=== PATIENT | male | born 1955 | race Caucasian/White ===

== ENCOUNTER 2020-10-22 22:31 | Emergency (ER) | payer OTHER ==
[2020-10-22 22:39] VITALS: RESP 18
--- NOTE | 2020-10-23 00:06 | XR ---
EXAMINATION TYPE: XR chest 2V DATE OF EXAM: 10/23/2020 COMPARISON: 07/16/2019 HISTORY: Short of breath TECHNIQUE: FINDINGS: There is no heart failure nor confluent pneumonic infiltrate. Costophrenic angles are clear . Heart size is normal. There is deformity left shoulder with old separation of the left AC joint. IMPRESSION: No active cardiopulmonary disease. No change.
--- NOTE | 2020-10-23 00:07 | ED ---
General Adult HPI - General Chief complaint: Shortness of Breath Stated complaint: Chest Pain Time Seen by Provider: 10/22/20 22:56 Source: patient, police Mode of arrival: ambulatory Limitations: no limitations - History of Present Illness Initial comments: 65-year-old male with history of COPD presents to the emergency department with a chief complaint of shortness of breath. Patient brought to the ED via policeman states the patient was arrested for driving under influence and then he complained that he was short of breath so he was brought to emergency department for evaluation. tactical deception plans officer states they have a search warrant for obtaining a serum alcohol level. Patient states she feels short of breath but denies any chest pain. States he used the albuterol inhaler multiple times and felt slightly better. Patient does report drinking earlier today but would not quantify the exact amount. - Related Data Allergies Allergy/AdvReac Type Severity Reaction Status Date / Time meperidine [From Demerol] Allergy Anaphylaxis Verified 10/22/20 22:39 Review of Systems ROS Statement: Those systems with pertinent positive or pertinent negative responses have been documented in the HPI. ROS Other: All systems not noted in ROS Statement are negative. Past Medical History Past Medical History: COPD, Hypertension History of Any Multi-Drug Resistant Organisms: None Reported Past Surgical History: Orthopedic Surgery Past Psychological History: No Psychological Hx Reported Smoking Status: Former smoker Past Alcohol Use History: Occasional Past Drug Use History: None Reported General Exam Limitations: no limitations General appearance: alert, in no apparent distress, appears intoxicated Head exam: Present: atraumatic, normocephalic, normal inspection Eye exam: Present: normal appearance, PERRL, EOMI Pupils: Present: normal accommodation ENT exam: Present: normal exam, normal oropharynx, mucous membranes moist, TM's normal bilaterally, normal external ear exam Neck exam: Present: normal inspection, full ROM. Absent: tenderness Respiratory exam: Present: normal lung sounds bilaterally. Absent: respiratory distress (Does not appear to be short of breath), wheezes, rales, rhonchi, stridor Cardiovascular Exam: Present: regular rate, normal rhythm, normal heart sounds Extremities exam: Present: normal inspection, full ROM, normal capillary refill. Absent: tenderness Back exam: Present: normal inspection, full ROM. Absent: tenderness Neurological exam: Present: alert, oriented X3, normal gait Psychiatric exam: Present: normal affect, normal mood Skin exam: Present: warm, dry, intact, normal color Course Vital Signs 10/22/20 10/22/20 22:35 22:47 Temperature 97.7 F Pulse Rate 74 Respiratory 18 18 Rate Blood Pressure 160/98 O2 Sat by Pulse 97 Oximetry EKG Findings - EKG Comments: EKG Findings:: Sinus rhythm and no ST changes. Ventricular rate 74, UT 160, QRS 100, QTC 441. Medical Decision Making - Medical Decision Making 65-year-old male presents to emergency department for alcohol intoxication. Patient brought by the policeman. He is complaining of shortness of breath but he does not appear to be visibly out of breath. He is finishing complete sentences. Oxygen saturation is 97% room air. EKG showing a sinus rhythm with no ST changes. Chest x-ray is unremarkable. Patient pulled his IV out and says he wants to go home. Serum alcohol pending. Patient will be discharged. Patient will be discharged with the police. Case discussed with Disposition Clinical Impression: Alcohol intoxication Disposition: HOME SELF-CARE Condition: Stable Instructions (If sedation given, give patient instructions): Alcohol Intoxication (ED) Additional Instructions: Please return to the Emergency Department if symptoms worsen or any other concerns. Is patient prescribed a controlled substance at d/c from ED?: No Referrals: None,Stated [Primary Care Provider] - 1-2 days Time of Disposition: 00:19
[2020-10-23 00:22] VITALS: BP 154/91; PULSE 95; TEMP 97.4
== END 2020-10-23 00:26 | disposition home or self-care (01) ==
LOC: EC 22:31
DX: F10.129 Alcohol abuse with intoxication, unspecified (principal); Y90.8 Blood alcohol level of 240 mg/100 ml or more; Z88.5 Allergy status to narcotic agent; Z87.891 Personal history of nicotine dependence
CPT/HCPCS: 36415; 71046; 80320; 93005; 99285

== ENCOUNTER 2022-07-18 06:12 | Day surgery (SDC) | payer MEDICARE, BC ==
[2022-07-14 08:24] VITALS: BMI 25.1
[~2022-07-18 06:12] MED LIST: LACTATED RINGERS 1,000 ML IV SCH
[2022-07-18 07:02] VITALS: TEMP 97.3
[2022-07-18] MEDS ORDERED: PROPOFOL 10 MG/ML 20 ML VIAL IV ONE (07:50)
[2022-07-18] MEDS ORDERED: LIDOCAINE 2% INJ 20 MG/ML (2 ML VIAL) ONE (07:50)
--- NOTE | 2022-07-18 08:13 | P.PCN ---
Date of Procedure: 07/18/22 Procedure(s) Performed: Brief history: Patient is a pleasant s 66-year-old white male cheduled for an elective upper endoscopy as well as colonoscopy as a part of evaluation of evaluation of GERD/screening for colon cancer and prior history of colon polyps. Last colonoscopy was in 2014. Procedure performed: Esophagogastroduodenoscopy with biopsy Colonoscopy with biopsy. Preoperative diagnosis: GERD Screening for colon cancer/history of colon polyps Anesthesia: MAC Procedure: After informed consent was obtained from the patient was brought into the endoscopy unit and IV sedation was administered by anesthesia under continuous monitoring. Initially upper endoscopy was done. The Olympus GF 160 video endoscope was inserted inserted into the mouth and esophagus intubated without any difficulty and was gradually advanced into the stomach and duodenum and carefully examined. The bulb and second part of the duodenum appeared normal. The scope was then withdrawn into the stomach adequately insufflated with air and upon careful examination the antrum had mild gastritis and biopsies were d one from this area. Mucosa of the body, cardia and fundus appeared normal. The scope was then withdrawn into the esophagus. Small sliding type hiatal hernia noted. The GE junction was located at 40 cm to the incisors. It appeared regular with no erythema erosions or ulcerations. Rest of the esophagus appeared normal. Patient tolerated the procedure well. At this time the patient continued to remain sedation. Initial digital rectal examination was normal. Olympus CF 160 video colonoscope was then inserted into the rectum and gradually advanced to the cecum without any difficulty. Careful examination was performed as the scope was gradually being withdrawn. The prep was excellent. On the ileocecal valve there was a 3 mm polyp that was removed by cold biopsy. The cecum, ascending colon, appeared normal. In the transverse colon there was a 5 mm polyp that was removed by cold biopsy. Rest of the transverse colon, descending colon, sigmoid colon and rectum appeared normal. S cattered sigmoid diverticulosis seen. Retroflexion was performed in the rectum and no lesions were noted. Patient tolerated the procedure well. Impression: 1. Upper endoscopy revealed small sliding type hiatal hernia and mild antral gastritis 2. Colonoscopy revealed a 3 mm polyp on the ileocecal valve and 5 mm transverse colon polyp removed by cold biopsy and scattered sigmoid diverticulosis Recommendations: Findings of this examination were discussed with the patient as well as his family. He was advised to follow with the biopsy results. Continue with omeprazole 20 mg daily and follow antrum reflux measures. If the biopsy results adenoma he can have a repeat colonoscopy in 5 years.
[2022-07-18] MEDS ORDERED: IV FLUID CONTINUATION 1,000 ML IV ONE (08:16)
[2022-07-18 08:40] VITALS: BP 123/80; PULSE 64; RESP 16
== END 2022-07-18 09:05 | disposition home or self-care (01) ==
LOC: ORWHC2ENDO 06:12
PROVIDERS: ATTEND Internal Medicine Gastroenterology
DX: Z12.11 Encounter for screening for malignant neoplasm of colon (principal); K63.5 Polyp of colon; K29.50 Unspecified chronic gastritis without bleeding; K44.9 Diaphragmatic hernia without obstruction or gangrene; K57.30 Diverticulosis of large intestine without perforation or abscess without bleeding; K63.89 Other specified diseases of intestine; K31.89 Other diseases of stomach and duodenum; K21.9 Gastro-esophageal reflux disease without esophagitis; Z88.5 Allergy status to narcotic agent; I10 Essential (primary) hypertension; E78.5 Hyperlipidemia, unspecified; J44.9 Chronic obstructive pulmonary disease, unspecified; Z79.01 Long term (current) use of anticoagulants; Z79.02 Long term (current) use of antithrombotics/antiplatelets; Z79.82 Long term (current) use of aspirin; Z79.83 Long term (current) use of bisphosphonates; Z79.899 Other long term (current) drug therapy; Z88.8 Allergy status to other drugs, medicaments and biological substances
CPT/HCPCS: 88305; 45380; 43239; J2704; J2001